=== PATIENT | female | born 2000 | race Two or more races ===

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

== ENCOUNTER 2022-08-27 03:56 | Emergency (ER) | payer OTHER ==
[~2022-08-27] VITALS: Ht 152.4 cm; Wt 49.5 kg
[2022-08-27] MEDS ORDERED: cefTRIAXone 1GM/50ML D5W 50 ML IV ONE (09:00)
[2022-08-27] MEDS ORDERED: MECLIZINE HCL 25 MG TAB PO ONE (09:00)
[2022-08-27] MEDS ORDERED: KETOROLAC TROMETH 30 MG/ML 1ML VIAL IV ONE (09:00)
[2022-08-27] MEDS ORDERED: SODIUM CHLORIDE 0.9% 1,000 ML IV ONE (09:00)
[2022-08-27 13:14] VITALS: BP 103/63
[2022-08-27] MEDS ORDERED: CEFD300C2 PO (13:30)
[2022-08-27] MEDS ORDERED: COROSUS EACH EAR (13:30)
[2022-08-27] MEDS ORDERED: HYDR-4902 PO (13:30)
== END 2022-08-27 13:40 | disposition home or self-care (01) ==
LOC: ER 04:00
DX: H66.92 Otitis media, unspecified, left ear (principal); H72.92 Unspecified perforation of tympanic membrane, left ear; Z88.0 Allergy status to penicillin; Z88.8 Allergy status to other drugs, medicaments and biological substances
CPT/HCPCS: 96365; 96375; 99284; J0696; J1885; J7030; J8597